=== PATIENT | male | born 1950 | race Caucasian/White ===

== ENCOUNTER 2016-12-06 20:37 | Emergency (ER) ==
[2016-12-06 20:41] VITALS: BP 154/81; TEMP 99.9; BMI 44.0
[2016-12-06] MEDS ORDERED: DUONEB NEB STA (20:49)
--- NOTE | 2016-12-06 20:52 | ED.PDOC ---
General ED Provider: Dr. DARA MENDEZ Chief Complaint: Shortness of Air Stated Complaint: Patient is a 66 year old male who states that he started having running hose and cough last night. Today it has progressed and is very short of breath with chest tightnees when he tries to breath. Time Seen by Physician: 20:45 Mode of Arrival: Walk-In Information Source: Patient Exam Limitations: No limitations Primary Care Provider: PAXTON MORRISON Nursing and Triage Documentation Reviewed and Agree: Yes Respiratory Complaint Exam - Respiratory Complaint/Exam Onset/Duration: 1 day Symptoms Are: Still present Timing: Constant Initial Severity: Moderate Current Severity: Severe Location: Chest Character: Reports: Non-productive cough Aggravating: Reports: URI, Weather Alleviating: Reports: None Associated Signs and Symptoms: Reports: Wheezing, URI History of Healthcare-Acquired Pneumonia: No Related Surgical History: Reports: None Pulmonary Embolism Risk Factors: None Cardiac Risk Factors: Reports: None Pseudomonas Risk Factors: Reports: None Tuberculosis Risk Factors: Reports: None Status Asthmaticus Risk Factors: Reports: None Home Oxygen Use: No Recent Stress Test: No Recent Echo/LV Function: No Current Antibiotic Use: No Current Asthma Medication Use: No Respiratory Distress: Moderate Inadequate Respiratory Effort: No Dysphagia Present: No Stridor Present: No JVD Present: No Accessory Muscle Use: No Diminished Breath Sounds: Yes (left ) Prolonged Respiration: Expiratory phase Sinus Tenderness: None Grunting Respirations: No Kussmaul Respirations: No Differential Diagnoses: Pneumonia, Bronchitis Review of Systems - Review Of Systems Constitutional: Reports: No symptoms Eyes: Reports: No symptoms Ears, Nose, Mouth, Throat: Reports: No symptoms Respiratory: Reports: Cough, Short of air, Wheezing Cardiac: Reports: No symptoms GI: Reports: No symptoms : Reports: No symptoms Musculoskeletal: Reports: No symptoms Skin: Reports: No symptoms Neurological: Reports: No symptoms Endocrine: Reports: No symptoms Hematologic/Lymphatic: Reports: No symptoms All Other Systems: Reviewed and Negative Past Medical History - Past Medical History Previously Healthy: Yes Endocrine: Reports: None Cardiovascular: Reports: None Respiratory: Reports: None Hematological: Reports: None Gastrointestinal: Reports: None Genitourinary: Reports: None Neuro/Psych: Reports: None Musculoskeletal: Reports: Joint Pain Cancer: Reports: Colon - Surgical History General Surgical History: Reports: Cholecystectomy - Family History Family History: Reports: None - Social History Smoking Status: Never smoker Hx Substance Use: No Alcohol Screening: None Physical Exam - Physical Exam Appearance: Ill-appearing, Obese Ill-appearing: Moderate Neck: Supple Respiratory: Breath sounds diminished (left ), Wheezes Cardiovascular: RRR, Pulses normal, No rub, No murmur GI/: Soft, Nontender, No masses, Bowel sounds normal, No Organomegaly Musculoskeletal: Normal strength, ROM intact, No edema, No calf tenderness Skin: Warm, Dry, Normal color Neurological: Sensation intact, Motor intact, Reflexes intact, Cranial nerves intact, Alert, Oriented Psychiatric: Anxious Interpretation - Radiology Interpretation Radiology Interpretation By: Radiologist Radiology Results: Negative Exam Interpreted: CXR Critical Care Note - Critical Care Note Total Time (mins): 0 Course - Course Hematology/Chemistry: 12/06/16 21:30 12/06/16 21:30 Orders, Labs, Meds: Lab Review 12/06/16 21:30 WBC 9.31 RBC 4.79 Hgb 14.3 Hct 40.6 L MCV 84.8 MCH 29.9 MCHC 35.2 RDW Coeff of Brook 12.6 Plt Count 167 Immature Gran % (Auto) 0.3 Neut % (Auto) 66.1 Lymph % (Auto) 24.0 Sebastian % (Auto) 6.2 Eos % (Auto) 2.8 Baso % (Auto) 0.6 Immature Gran # (Auto) 0.0 Neut # 6.2 Lymph # 2.2 Sebastian # 0.6 Eos # 0.3 Baso # 0.1 Sodium 141 Potassium 3.4 L Chloride 105 Carbon Dioxide 26 Anion Gap 13.4 BUN 12 Creatinine 1.22 H Estimated GFR (MDRD) 60.00 BUN/Creatinine Ratio 9.83 Glucose 149 H Lactic Acid 18.3 Calcium 8.9 Total Bilirubin 0.74 AST 22 ALT 25 Alkaline Phosphatase 97 Total Protein 6.8 Albumin 3.2 L Globulin 3.6 Albumin/Globulin Ratio 0.89 Procalcitonin < 0.05 Orders Category Date Time Status NEBULIZER TREATMENT Stat CARDIO 12/06/16 20:49 Completed BLOOD CULTURE Stat LAB 12/06/16 21:30 Received CBC W/ AUTO DIFF Stat LAB 12/06/16 21:30 Completed COMPREHENSIVE METABOLIC PANEL Stat LAB 12/06/16 21:30 Completed LACTIC ACID Stat LAB 12/06/16 21:30 Completed PROCALCITONIN Stat LAB 12/06/16 21:30 Completed Azithromycin [Zithromax] MEDS 12/06/16 22:10 Discontinued 500 mg PO ONCE STA Ipratropium/Albuterol Neb [Duoneb] MEDS 12/06/16 20:49 Discontinued 1 vial NEB ONCE STA CHEST, 2 VIEWS PA & LAT Stat RADS 12/06/16 20:49 Completed Medications Discontinued Medications Generic Name Dose Route Start Last Admin Trade Name Freq PRN Reason Stop Dose Admin Albuterol/Ipratropium 1 vial 12/06/16 20:49 12/06/16 21:18 Duoneb NEB 12/06/16 20:50 1 vial ONCE STA Administration Azithromycin 500 mg 12/06/16 22:10 12/06/16 22:14 Zithromax PO 12/06/16 22:11 500 mg ONCE STA Administration Vital Signs: Temp Pulse Resp BP Pulse Ox 12/06/16 20:38 99.9 F H 76 24 154/81 H 95 Departure - Departure Time of Disposition: 22:05 Disposition: HOME SELF-CARE Discharge Problem: Acute bronchitis Qualifiers: Bronchitis organism: other organism Qualifier Code: (J20.8) Acute bronchitis due to other specified organisms Instructions: Acute Bronchitis (ED) Condition: Fair Pt referred to PMD for follow-up: Yes Additional Instructions: Push fluids Take antibiotics as steroids as prescribed Follow up with PCP in 3 days. Prescriptions: Albuterol Sulfate [Proair Hfa] 2 puff IH Q6H PRN #1 puff PRN Reason: Wheezing Azithromycin [Zithromax] 250 mg PO DIRECTED #6 tablet Methylprednisolone [Medrol Dosepak] 4 mg PO DIRECTED #1 pkg Allergies/Adverse Reactions: Allergies No Known Allergies Allergy (Verified 12/06/16 20:40) Home Medications: Ambulatory Orders Albuterol Sulfate [Proair Hfa] 2 puff IH Q6H PRN #1 puff 12/06/16 Azithromycin [Zithromax] 250 mg PO DIRECTED #6 tablet 12/06/16 Methylprednisolone [Medrol Dosepak] 4 mg PO DIRECTED #1 pkg 12/06/16 Disposition Discussed With: Patient
[2016-12-06 21:35] LABS: BASOPHILS # (AUTO) 0.1 K/uL (0-0.2); BASOPHILS % (AUTO) 0.6 % (0.0-3.0); EOSINOPHILS # (AUTO) 0.3 K/ul (0.0-0.7); EOSINOPHILS % (AUTO) 2.8 % (0.0-7.0); HEMATOCRIT 40.6 % (42.0-52.0); HEMOGLOBIN 14.3 g/dl (14.0-18.0); IMMATURE GRANULOCYTE % (AUTO) 0.3 % (0.0-5.0); LYMPHOCYTES # (AUTO) 2.2 K/uL (0.60-3.4); MEAN CORPUSCULAR HEMOGLOBIN 29.9 pg (27.0-31.0); MEAN CORPUSCULAR HGB CONC 35.2 (31.8-35.4); MEAN CORPUSCULAR VOLUME 84.8 fl (80.0-94.0); MONOCYTES # (AUTO) 0.6 K/uL (0.4-2.0); MONOCYTES % (AUTO) 6.2 (0-10); NEUTROPHILS # (AUTO) 6.2 K/ul (2.0-6.9); NEUTROPHILS % (AUTO) 66.1; PLATELET COUNT 167 10^3/uL (140-440); RED BLOOD COUNT 4.79 10^6/ul (4.70-6.10); WHITE BLOOD COUNT 9.31 K/ul (4.2-10.2)
[2016-12-06 21:54] LABS: ALBUMIN 3.2 g/dL (3.4-5.0); ALBUMIN/GLOBULIN RATIO 0.89; ANION GAP 13.4; BILIRUBIN,TOTAL 0.74 mg/dL (0.00-1.20); BUN/CREATININE RATIO 9.83; CALCIUM 8.9 mg/dL (8.2-10.2); CREATININE 1.22 mg/dL (0.60-1.10); POTASSIUM 3.4 mmol/L (3.5-5.1); TOTAL PROTEIN 6.8 g/dL (5.8-8.1)
[2016-12-06] MEDS ORDERED: ZITHROMAX PO STA (22:10)
--- NOTE | 2016-12-06 22:18 | DI ---
EXAM: Chest two view. HISTORY: Cough. COMPARISON: 09/20/2014 FINDINGS: Heart size is normal. The lungs are clear without localized pulmonary infiltrate or pneu monia. There is no pleural fluid. Slight cortical thickening anterior aspect left sixth rib, possi ble prior fracture IMPRESSION: 1. Heart size normal 2. Lungs are clear. No acute cardiopulmonary findings.
== END 2016-12-06 22:21 | disposition home or self-care (01) ==
LOC: ED 20:37
DX: J20.9 Acute bronchitis, unspecified (principal)
CPT/HCPCS: 36415; 80053; 83605; 84145; 85025; 87040; 94640; 99283

== ENCOUNTER 2018-05-21 10:20 | Day surgery (SDC) | payer OTHER ==
[2018-05-21] MEDS ORDERED: LIDOCAINE 1% 20 ML MDV ID STA (10:54)
[2018-05-21] MEDS ORDERED: DIPRIVAN 20 ML VIAL IVP ONE (10:55)
[2018-05-21] MEDS ORDERED: VERSED ONE (10:55)
[2018-05-21 15:39] VITALS: BP 112/77
--- NOTE | 2018-05-22 09:14 | OP ---
PROCEDURE: COLONOSCOPY TO THE CECUM. ENDOSCOPIST: Jas GIBBONS M.D. INDICATION: HISTORY OF COLON CANCER AND CHANGE IN BOWEL HABITS. INSTRUMENT: [id number]. MEDICATION: PER ANESTHESIA. PROCEDURE: The patient was positioned for colonoscopy. The digital rectal exam was negative. The colonoscope was inserted through the anus and advanced to the cecum. The cecum was identified using the ileocecal valve and the appendiceal orifice as landmarks. The scope was slowly withdrawn through an adequately prepped colon. Thatcher Bowel Prep Score equals 9. The exam was normal. Surgical anastomosis was noted in the rectal sigmoid segment. Retroflex exam otherwise negative. Withdraw time 8 minutes and 15 seconds. PLAN: 1. Suggest repeat colonoscopy for surveillance in 5 years. CC: Dr. Dileep MCPHERSON
== END 2018-05-21 12:15 | disposition home or self-care (01) ==
LOC: SURG 10:20
PROVIDERS: ATTEND Internal Medicine Gastroenterology
DX: R19.4 Change in bowel habit (principal); Z85.038 Personal history of other malignant neoplasm of large intestine